=== PATIENT | male | born 1965 | race Caucasian/White ===

== ENCOUNTER 2020-04-20 22:34 | Observation (INO) ==
[2020-04-21] MEDS ORDERED: Naloxone 0.4 MG/ML INJ IVP PRN (01:13)
[2020-04-21] MEDS ORDERED: Isovue-370 500 ML BOTTLE IVP ONE (01:21)
[2020-04-21] MEDS ORDERED: Dextrose Gel 15 GM/37.5 ML TUBE PO PRN ×2 (03:01)
[2020-04-21] MEDS ORDERED: *HR* Dextrose 50 % in Water (Vial) 50 ML VIAL IVP PRN (03:01)
[2020-04-21] MEDS ORDERED: D5% in Water 1,000 ML IVC PRN (03:01)
[2020-04-21 03:44] LABS: Basophils % 0.1 %; Hematocrit 37.2 % (37.5-50.1); Hemoglobin 12.8 g/dL (12.9-16.9); Immature Granulocytes % 1.1 % (0-4); Lymphocytes # 0.9 K/mcL (0.6-4.6); Lymphocytes % 6.4 %; Mean Corpuscular HGB Conc 34.4 g/dL (31.6-35.5); Mean Corpuscular Hemoglobin 31.8 pg (28.0-33.3); Mean Corpuscular Volume 92.3 fL (83.0-100.0); Monocytes # 0.2 K/mcL (0.0-1.3); Monocytes % 1.3 %; Neutrophils # 13.3 K/mcL (1.6-8.9); Platelet Count 262 K/mcL (140-400); Red Blood Count 4.03 M/mcL (4.19-5.50); Red Cell Distribution Width 15.9 % (11.5-14.5); Segmented Neutrophils % 91.1 %; White Blood Count 14.6 K/mcL (4.3-11.1)
[2020-04-21 03:51] LABS: INR 1.1; Prothrombin Time 12.2 Seconds (9.4-12.1)
[2020-04-21 04:22] LABS: Bacteria,Urine Few per hpf (None-Few); Bilirubin,Urine Negative (Negative); Blood,Urine Trace (Negative); Clarity,Urine Clear (Clear); Color,Urine Yellow (Yellow); Glucose,Urine (UA) >=1000 mg/dL (Normal); Ketones,Urine Trace mg/dL (Negative); Leukocyte Esterase,Urine Negative (Negative); Mucus,Urine Few per lpf (None-Few); Nitrite,Urine Negative (Negative); Protein,Urine 30 mg/dL (Neg-Trace); RBC,Urine 0-3 per hpf (0-3); Specific Gravity,Urine > 1.030 (1.010-1.025); Urobilinogen,Urine Normal (Normal); WBC,Urine 0-3 per hpf (0-3)
[2020-04-21 04:22] LABS: Alanine Aminotransferase 75 Units/L (7-52); Albumin 3.3 g/dL (3.5-5.7); Albumin/Globulin Ratio 0.8 (1.1-2.2); Alkaline Phosphatase 249 Units/L (34-104); Aspartate Amino Transferase 63 Units/L (13-39); BUN/Creatinine Ratio 32 (6-26); Bilirubin,Total 7.8 mg/dL (0.3-1.0); Blood Urea Nitrogen 28 mg/dL (6-20); Calcium 8.8 mg/dL (8.6-10.3); Carbon Dioxide 25 mEq/L (23-29); Chloride 89 mEq/L (98-107); Chol/HDL Ratio 32.8 (0-4.9); Cholesterol 262 mg/dL (< 200); Glucose 417 mg/dL (70-105); HDL Cholesterol 8 mg/dL (40-59); Osmolality,Calculated 281 (280-300); Potassium 4.2 mEq/L (3.5-5.1); Sodium 124 mEq/L (136-145); Total Protein 7.3 g/dL (6.4-8.9); Triglycerides 443 mg/dL (< 150); eGFR For African Americans > 60 (> 60); eGFR For Non-African Americans > 60 (> 60)
[2020-04-21] MEDS: 0.9 % Sodium Chloride 1,000 ML IVC SCH ×3 (05:58→21:42)
[2020-04-21] MEDS ORDERED: Insulin LISPRO 300 UNITS/3 ML VIAL SQ SCH (06:00)
[2020-04-21 08:56] LABS: Estimated Average Glucose 283 mg/dl
[2020-04-21] MEDS: Clotrimazole/Betameth Dip CRM 45 APPL/45 GM TUBE TP SCH ×2 (12:27→20:36)
[2020-04-21] MEDS ORDERED: Ringers Solution, Lactated 1,000 ML IVC SCH (13:45)
[2020-04-21] MEDS ORDERED: Ipratropium/Albuterol Neb 3 ML IH PRN (14:06)
[2020-04-21] MEDS ORDERED: *HR* FentaNYL (PF) 100 MCG/2 ML VIAL ONE (14:32)
[2020-04-21] MEDS ORDERED: Lidocaine -MPF 2% 2 ML VIAL ONE (14:33)
[2020-04-21] MEDS ORDERED: *HR* Succinylcholine 200 MG/10 ML VIAL IVP ONE (14:34)
[2020-04-21] MEDS ORDERED: *HR* Propofol 200 MG/20 ML VIAL IVP ONE (14:34)
[2020-04-21] MEDS: Insulin LISPRO 300 UNITS/3 ML VIAL SQ SCH ×2 (14:57→17:07)
[2020-04-21] MEDS ORDERED: Dexamethasone 4 MG/ML VIAL ONE (15:28)
[2020-04-21] MEDS ORDERED: Ondansetron 4 MG/2 ML VIAL ONE (15:28)
[2020-04-21] MEDS ORDERED: *HR* Labetalol 20 MG/4 ML SYRINGE IVP ONE (16:01)
[2020-04-21] MEDS ORDERED: *HR* Labetalol 20 MG/4 ML SYRINGE IVP PRN (16:06)
[2020-04-21] MEDS ORDERED: Insulin DETEMIR 100 UNIT/ML X5UNITS SQ ONE (18:31)
[2020-04-21] MEDS ORDERED: Insulin DETEMIR 100 UNIT/ML X5UNITS SQ SCH (21:00)
[2020-04-22] MEDS: Insulin LISPRO 300 UNITS/3 ML VIAL SQ SCH ×4 (00:25→16:46)
[2020-04-22] MEDS: 0.9 % Sodium Chloride 1,000 ML IVC SCH ×3 (05:36→10:55)
[2020-04-22] MEDS: Clotrimazole/Betameth Dip CRM 45 APPL/45 GM TUBE TP SCH (07:28)
[2020-04-22] MEDS ORDERED: *HR* Propofol 200 MG/20 ML VIAL IVP ONE (07:38)
[2020-04-22] MEDS ORDERED: *HR* Midazolam HCl 2 MG/2 ML VIAL ONE (07:38)
[2020-04-22] MEDS ORDERED: Dexamethasone 4 MG/ML VIAL ONE (07:38)
[2020-04-22] MEDS ORDERED: Lidocaine -MPF 2% 2 ML VIAL ONE ×2 (07:38)
[2020-04-22] MEDS ORDERED: *HR* FentaNYL (PF) 100 MCG/2 ML VIAL ONE ×2 (07:38→08:39)
[2020-04-22] MEDS ORDERED: *HR* Rocuronium Bromide 50 MG/5 ML VIAL ONE (07:38)
[2020-04-22] MEDS ORDERED: Ondansetron 4 MG/2 ML VIAL ONE (07:38)
[2020-04-22] MEDS ORDERED: *HR* Succinylcholine 200 MG/10 ML VIAL IVP ONE (07:38)
[2020-04-22] MEDS ORDERED: Lidocaine HCL 4 ML Topical Solution (Laryng-O-Jet Kit Sterile Pak) TP ONE (07:40)
[2020-04-22] MEDS ORDERED: Isovue-300 50ML VIAL ONE (07:53)
[2020-04-22] MEDS ORDERED: Albuterol 2.5 MG/3 ML NEBULIZER IH PRN (08:13)
[2020-04-22] MEDS ORDERED: *HR* Labetalol 20 MG/4 ML SYRINGE IVP PRN (08:13)
[2020-04-22] MEDS ORDERED: *HR* Promethazine 25 MG/ML VIAL IVP PRN (08:13)
[2020-04-22] MEDS ORDERED: *HR* OxyCODONE Immed Rel 5 MG TABLET PO PRN (08:13)
[2020-04-22] MEDS ORDERED: Ondansetron 4 MG/2 ML VIAL IVP ONE (08:13)
[2020-04-22] MEDS ORDERED: *HR* HYDROmorphone PF 0.5 MG/0.5 ML SYRINGE IVP PRN (08:13)
[2020-04-22] MEDS ORDERED: ceFAZolin 2,000 MG in Water for inj. (sterile) 20 ML IVP ONE (08:40)
[2020-04-22] MEDS ORDERED: Insulin DETEMIR 100 UNIT/ML X5UNITS SQ SCH ×2 (09:00→21:00)
[2020-04-22] MEDS ORDERED: *HR* Labetalol 20 MG/4 ML SYRINGE IVP ONE (09:01)
[2020-04-22] MEDS ORDERED: *HR* HYDROMORPHONE 2 MG/ML VIAL ONE (09:42)
[2020-04-22] MEDS ORDERED: Naloxone 0.4 MG/ML INJ IVP PRN (10:53)
[2020-04-22] MEDS ORDERED: Ipratropium/Albuterol Neb 3 ML IH PRN (10:53)
[2020-04-22] MEDS ORDERED: Dextrose Gel 15 GM/37.5 ML TUBE PO PRN ×2 (10:53)
[2020-04-22] MEDS ORDERED: *HR* Dextrose 50 % in Water (Vial) 50 ML VIAL IVP PRN (10:53)
[2020-04-22] MEDS ORDERED: D5% in Water 1,000 ML IVC PRN (10:53)
[2020-04-22] MEDS ORDERED: 0.9 % Sodium Chloride 1,000 ML IVC SCH (10:53)
[2020-04-22 10:55] LABS: Basophils % 0.2 %; Hematocrit 35.2 % (37.5-50.1); Hemoglobin 11.9 g/dL (12.9-16.9); Immature Granulocytes % 1.3 % (0-4); Lymphocytes # 1.9 K/mcL (0.6-4.6); Lymphocytes % 12.1 %; Mean Corpuscular HGB Conc 33.8 g/dL (31.6-35.5); Mean Corpuscular Hemoglobin 33.3 pg (28.0-33.3); Mean Platelet Volume 11.1 fL (9.4-12.4); Monocytes % 6.3 %; Neutrophils # 12.4 K/mcL (1.6-8.9); Platelet Count 289 K/mcL (140-400); Red Blood Count 3.57 M/mcL (4.19-5.50); Red Cell Distribution Width 16.7 % (11.5-14.5); Segmented Neutrophils % 80.1 %; White Blood Count 15.5 K/mcL (4.3-11.1)
[2020-04-22 11:09] LABS: Alanine Aminotransferase 148 Units/L (7-52); Albumin 3.2 g/dL (3.5-5.7); Albumin/Globulin Ratio 0.9 (1.1-2.2); Alkaline Phosphatase 253 Units/L (34-104); Aspartate Amino Transferase 191 Units/L (13-39); BUN/Creatinine Ratio 32 (6-26); Bilirubin,Total 6.1 mg/dL (0.3-1.0); Blood Urea Nitrogen 30 mg/dL (6-20); Calcium 8.4 mg/dL (8.6-10.3); Carbon Dioxide 27 mEq/L (23-29); Chloride 95 mEq/L (98-107); Globulin 3.5 g/dL (2.4-3.5); Glucose 247 mg/dL (70-105); Lipase 76 Units/L (11-82); Osmolality,Calculated 282 (280-300); Potassium 4.4 mEq/L (3.5-5.1); Sodium 129 mEq/L (136-145); Total Protein 6.7 g/dL (6.4-8.9); eGFR For African Americans > 60 (> 60); eGFR For Non-African Americans > 60 (> 60)
[2020-04-22 11:10] LABS: Mean Corpuscular Volume 98.6 fL (83.0-100.0)
[2020-04-22] MEDS: Ondansetron 4 MG/2 ML VIAL IVP SCH ×2 (11:11→16:52)
[2020-04-22] MEDS ORDERED: Nicotine 21 MG PATCH.TD24 TD SCH (11:15)
[2020-04-22 15:03] VITALS: BP 161/93
[2020-04-22] MEDS ORDERED: Clotrimazole/Betameth Dip CRM 45 APPL/45 GM TUBE TP SCH (21:00)
== END 2020-04-22 18:49 | disposition home or self-care (01) ==
LOC: 3ANU → SUATTDRO 04-21 00:59
PROVIDERS: ADMIT Student in an Organized Health Care Education/Training Program; ATTEND Internal Medicine